=== PATIENT | male | born 1950 | race Caucasian/White ===

== ENCOUNTER 2020-11-29 22:07 | Inpatient (IN) | payer OTHER, MEDICAID ==
[~2020-11-29] VITALS: Ht 177.8 cm; Wt 116.3 kg
[~2020-11-29 22:07] MED LIST: ACET-929; DIAZ5TAB PO; GLIP5TAB12; GLYB5TAB8; HYDR-2595; LEVEMIR; LORA0.5T19; METH750T22; NAPR375T27; NOR10T PO; TEMA30CA; THYR60TA; TRAM50TA2; ZOLP5TAB PO
[2020-11-30 01:29] LABS: Basophils # (auto) 0 10 ^3/uL (0-0.2); Basophils % (auto) 0.4 % (0.0-2.0); Eosinophils # (auto) 0.1 10 ^3/uL (0-0.8); Eosinophils % (auto) 0.8 % (0.0-7.0); Hematocrit 41.6 % (41.0-53.0); Hemoglobin 14.1 g/dL (13.5-17.5); Lymphocytes # (auto) 1.4 10 ^3/uL (0.4-5.4); Lymphocytes % (auto) 15.7 % (10.0-50.0); Mean Corpuscular Hemoglobin 29.4 pg (28.0-32.0); Mean Corpuscular Hgb Conc. 33.8 g/dL (32.0-36.0); Mean Corpuscular Volume 86.8 fL (80.0-100.0); Monocytes # (auto) 0.6 10 ^3/uL (0-1.3); Monocytes % (auto) 7.2 % (0.0-12.0); Neutrophils # (auto) 6.7 10 ^3/uL (1.6-8.6); Neutrophils % (auto) 75.9 % (37.0-80.0); Red Cell Distribution Width 13.6 % (11.8-14.3); White Blood Cell 8.8 10^3/uL (4.4-10.8)
[2020-11-30 01:35] LABS: Albumin 2.5 g/dL (3.4-5.0); BUN/Creatinine Ratio 10.3; Calcium 8.4 mg/dL (8.5-10.1); Potassium 3.8 mmol/L (3.5-5.1)
[2020-11-30 01:40] LABS: Bilirubin, Total 0.2 mg/dL (0.2-1.0); Total Protein 6.7 g/dL (6.4-8.2)
[2020-11-30 02:48] LABS: Urine Bacteria NONE SEEN /hpf (None Seen); Urine Blood Negative /uL (Negative); Urine Hyaline Cast FEW /lpf (0 - 2); Urine Mucus FEW (None Seen); Urine Specific Gravity 1.018 (1.001-1.035); Urine WBC 4 /hpf (0 - 3)
[2020-11-30] MEDS ORDERED: ASPirin 325 MG TAB PO ONE (03:45)
[2020-11-30] MEDS ORDERED: ENOXAPARIN SOD 100 MG/1 ML SYRINGE SC ONE ×2 (03:45→06:45)
[2020-11-30] MEDS ORDERED: NITROGLYCERIN 0.4 MG SL TAB SL PRN (05:00)
[2020-11-30] MEDS ORDERED: MORPHINE SULFATE INJECTION 2 MG/ML SYRG IV PRN (05:00)
[2020-11-30] MEDS ORDERED: ACETAMINOPHEN 325 MG TAB PO PRN (05:00)
[2020-11-30] MEDS ORDERED: ONDANSETRON HCL 4 MG/2 ML VIAL IV PRN (05:00)
[2020-11-30] MEDS ORDERED: DEXTROSE (50%) 50ML SYRG IV PRN (05:00)
[2020-11-30] MEDS: InsuLIN REG 1unit/0.01ml Soln (100units/ml) SC SCH ×4 (05:44→23:51)
[2020-11-30] MEDS: ACCU-CHEK COMFORT CURVE STRIP VI SCH ×4 (05:45→23:51)
[2020-11-30] MEDS: ASPirin 81 mg TAB PO SCH (09:30)
[2020-11-30] MEDS: PANTOPRAZOLE 40 MG TAB PO SCH (09:30)
[2020-11-30] MEDS ORDERED: LORazepam 2MG/ML-1ML VIAL ONE (15:24)
[2020-11-30] MEDS ORDERED: LORazepam 2MG/ML-1ML VIAL IV ONE (15:30)
[2020-11-30 16:46] VITALS: BP 128/77
[2020-11-30] MEDS ORDERED: LORazepam 2MG/ML-1ML VIAL IV PRN ×2 (18:00→21:30)
[2020-11-30] MEDS: ATORVASTATIN 20 MG TAB PO SCH (20:56)
[2020-11-30 22:00] VITALS: BP 132/90
[2020-11-30 22:33] LABS: Folate (Folic Acid) > 24.00 ng/mL (5.38-24)
[2020-12-01 05:00] VITALS: BP 104/60
[2020-12-01] MEDS: InsuLIN REG 1unit/0.01ml Soln (100units/ml) SC SCH ×3 (05:31→18:00)
[2020-12-01] MEDS: ACCU-CHEK COMFORT CURVE STRIP VI SCH ×3 (05:32→18:00)
[2020-12-01 05:51] LABS: Basophils # (auto) 0.1 10 ^3/uL (0-0.2); Basophils % (auto) 0.8 % (0.0-2.0); Eosinophils # (auto) 0.1 10 ^3/uL (0-0.8); Eosinophils % (auto) 0.7 % (0.0-7.0); Hematocrit 44.1 % (41.0-53.0); Hemoglobin 15.1 g/dL (13.5-17.5); Lymphocytes # (auto) 1.3 10 ^3/uL (0.4-5.4); Lymphocytes % (auto) 17.9 % (10.0-50.0); Mean Corpuscular Hemoglobin 29.8 pg (28.0-32.0); Mean Corpuscular Hgb Conc. 34.2 g/dL (32.0-36.0); Monocytes # (auto) 0.5 10 ^3/uL (0-1.3); Monocytes % (auto) 7.6 % (0.0-12.0); Neutrophils # (auto) 5.3 10 ^3/uL (1.6-8.6); Nucleated Red Blood Cells % 0.1 %; Red Blood Cells 5.07 10^6/uL (4.5-5.90); Red Cell Distribution Width 13.8 % (11.8-14.3); White Blood Cell 7.2 10^3/uL (4.4-10.8)
[2020-12-01 06:27] LABS: Potassium 4.4 mmol/L (3.5-5.1)
[2020-12-01 06:39] LABS: Albumin 2.6 g/dL (3.4-5.0); BUN/Creatinine Ratio 7.4; Bilirubin, Total 0.4 mg/dL (0.2-1.0); Calcium 9.1 mg/dL (8.5-10.1)
[2020-12-01] MEDS ORDERED: ADENOSINE 99 MG in GIVE UN-DILUTED 0 ML IV STA (07:44)
[2020-12-01] MEDS: PANTOPRAZOLE 40 MG TAB PO SCH (11:11)
[2020-12-01] MEDS: ASPirin 81 mg TAB PO SCH (11:11)
[2020-12-01] MEDS ORDERED: HYDROcodone-ACET 10/325MG TAB PO PRN (11:30)
[2020-12-01] MEDS ORDERED: LORazepam 0.5 MG TAB PO PRN (11:30)
[2020-12-01] MEDS ORDERED: NICOTINE 21MG/24 HR TOPICAL PATCH TD ONE (11:30)
[2020-12-01] MEDS ORDERED: METHOCARBAMOL 500 MG TAB PO PRN (11:30)
[2020-12-01] MEDS ORDERED: traMADol HCL 50 MG TAB PO PRN (11:30)
[2020-12-01] MEDS ORDERED: ACETAMINOPHEN 325 MG TAB PO PRN (12:00)
[2020-12-01] MEDS: NAPROXEN 500 MG TAB PO SCH ×2 (12:17→21:54)
[2020-12-01 13:00] VITALS: BP 142/102
[2020-12-01] MEDS: glipiZIDE 5 MG TAB PO SCH (18:00)
[2020-12-01] MEDS ORDERED: CYANOCOBALAMIN (B-12) 1000 MCG/1 ML VIAL IM ONE (21:15)
[2020-12-01] MEDS: ATORVASTATIN 20 MG TAB PO SCH (21:53)
[2020-12-01] MEDS: TEMAZEPAM 15 MG CAP PO PRN (21:54)
[2020-12-01 22:01] VITALS: BP 124/78
[2020-12-01 22:04] LABS: Cholesterol 170 mg/dL (< 200)
[2020-12-01 22:07] LABS: HDL Cholesterol 30 mg/dL (40-59); LDL Cholesterol 127 mg/dL (< 100); Triglycerides 94 mg/dL (< 150)
[2020-12-02] MEDS: SODIUM CHLORIDE 0.9% 1,000 ML IV SCH ×3 (00:14→21:44)
[2020-12-02 05:00] VITALS: BP 123/72
[2020-12-02 05:38] LABS: Basophils # (auto) 0 10 ^3/uL (0-0.2); Basophils % (auto) 0.5 % (0.0-2.0); Eosinophils # (auto) 0.1 10 ^3/uL (0-0.8); Eosinophils % (auto) 1.4 % (0.0-7.0); Hematocrit 44.4 % (41.0-53.0); Hemoglobin 14.9 g/dL (13.5-17.5); Lymphocytes # (auto) 1.4 10 ^3/uL (0.4-5.4); Lymphocytes % (auto) 20.3 % (10.0-50.0); Mean Corpuscular Hemoglobin 29.7 pg (28.0-32.0); Mean Corpuscular Hgb Conc. 33.5 g/dL (32.0-36.0); Mean Corpuscular Volume 88.7 fL (80.0-100.0); Monocytes # (auto) 0.7 10 ^3/uL (0-1.3); Monocytes % (auto) 9.6 % (0.0-12.0); Neutrophils # (auto) 4.8 10 ^3/uL (1.6-8.6); Neutrophils % (auto) 68.2 % (37.0-80.0); Nucleated Red Blood Cells % 0.1 %; Red Cell Distribution Width 13.6 % (11.8-14.3); White Blood Cell 7.1 10^3/uL (4.4-10.8)
[2020-12-02] MEDS: ACCU-CHEK COMFORT CURVE STRIP VI SCH ×4 (05:52→17:41)
[2020-12-02] MEDS: InsuLIN REG 1unit/0.01ml Soln (100units/ml) SC SCH ×4 (05:52→17:42)
[2020-12-02 06:26] LABS: Sodium 137 mmol/L (136-145)
[2020-12-02 06:27] LABS: Anion Gap 7 (5-15); BUN/Creatinine Ratio 11.5; Blood Urea Nitrogen 13 mg/dL (7-18); Calcium 8.6 mg/dL (8.5-10.1); Carbon Dioxide 23 mmol/L (21-32); Chloride 107 mmol/L (98-107); GFR African American 83 mL/min; GFR Non-African American 68 mL/min; Glucose 135 mg/dL (74-106); Potassium 4.2 mmol/L (3.5-5.1)
[2020-12-02] MEDS: glipiZIDE 5 MG TAB PO SCH ×2 (07:00→17:40)
[2020-12-02 09:00] VITALS: BP 153/94
[2020-12-02] MEDS: THYROID 60 MG TAB PO SCH (10:06)
[2020-12-02] MEDS: NAPROXEN 500 MG TAB PO SCH ×2 (10:08→21:44)
[2020-12-02] MEDS: NICOTINE 21MG/24 HR TOPICAL PATCH TD SCH (10:09)
[2020-12-02] MEDS: PANTOPRAZOLE 40 MG TAB PO SCH (10:09)
[2020-12-02 13:00] VITALS: BP 150/93
[2020-12-02 16:56] VITALS: BP 99/64
[2020-12-02] MEDS: ATORVASTATIN 20 MG TAB PO SCH (21:43)
[2020-12-02 22:00] VITALS: BP 112/73
[2020-12-02] MEDS ORDERED: CYANOCOBALAMIN 500 MCG TAB PO SCH (22:00)
[2020-12-02] MEDS ORDERED: ASPirin 81 mg TAB PO SCH (22:00)
[2020-12-02] MEDS: TEMAZEPAM 15 MG CAP PO PRN (22:12)
[2020-12-03] MEDS: ACCU-CHEK COMFORT CURVE STRIP VI SCH ×3 (00:12→12:59)
[2020-12-03 05:00] VITALS: BP 113/73
[2020-12-03] MEDS: InsuLIN REG 1unit/0.01ml Soln (100units/ml) SC SCH ×3 (06:00→13:00)
[2020-12-03] MEDS: glipiZIDE 5 MG TAB PO SCH (06:54)
[2020-12-03 08:16] LABS: Basophils # (auto) 0.2 10 ^3/uL (0-0.2); Basophils % (auto) 2.5 % (0.0-2.0); Eosinophils # (auto) 0.2 10 ^3/uL (0-0.8); Eosinophils % (auto) 1.7 % (0.0-7.0); Hematocrit 45.6 % (41.0-53.0); Hemoglobin 14.9 g/dL (13.5-17.5); Lymphocytes # (auto) 2.2 10 ^3/uL (0.4-5.4); Lymphocytes % (auto) 22.2 % (10.0-50.0); Mean Corpuscular Hemoglobin 28.4 pg (28.0-32.0); Mean Corpuscular Hgb Conc. 32.6 g/dL (32.0-36.0); Mean Corpuscular Volume 87.1 fL (80.0-100.0); Monocytes # (auto) 0.9 10 ^3/uL (0-1.3); Monocytes % (auto) 8.9 % (0.0-12.0); Neutrophils # (auto) 6.3 10 ^3/uL (1.6-8.6); Neutrophils % (auto) 64.7 % (37.0-80.0); Nucleated Red Blood Cells % 0.3 %; Red Blood Cells 5.23 10^6/uL (4.5-5.90); Red Cell Distribution Width 13.8 % (11.8-14.3); White Blood Cell 9.8 10^3/uL (4.4-10.8)
[2020-12-03 08:25] LABS: Albumin 2.4 g/dL (3.4-5.0); Calcium 8.6 mg/dL (8.5-10.1); Potassium 5.5 mmol/L (3.5-5.1)
[2020-12-03 08:32] LABS: Bilirubin, Total 0.5 mg/dL (0.2-1.0); Total Protein 6.8 g/dL (6.4-8.2)
[2020-12-03 09:00] VITALS: BP 115/70
[2020-12-03] MEDS: THYROID 60 MG TAB PO SCH (12:55)
[2020-12-03] MEDS: NAPROXEN 500 MG TAB PO SCH (12:56)
[2020-12-03] MEDS: PANTOPRAZOLE 40 MG TAB PO SCH (12:59)
[2020-12-03] MEDS: NICOTINE 21MG/24 HR TOPICAL PATCH TD SCH (12:59)
[2020-12-03 13:00] VITALS: BP 139/102
[2020-12-03] MEDS: SODIUM CHLORIDE 0.9% 1,000 ML IV SCH (13:00)
== END 2020-12-03 16:50 | disposition home or self-care (01) | DRG 64 ==
LOC: EDBD 22:07 → ER 22:17 → TELE 11-30 04:57 → TELE-WESTW 11-30 14:48
PROVIDERS: ADMIT Nurse Practitioner; ATTEND Internal Medicine
DX: I63.9 Cerebral infarction, unspecified (principal); I21.4 Non-ST elevation (NSTEMI) myocardial infarction; N17.0 Acute kidney failure with tubular necrosis; S02.19XA Other fracture of base of skull, initial encounter for closed fracture; G93.49 Other encephalopathy; E44.0 Moderate protein-calorie malnutrition; E87.1 Hypo-osmolality and hyponatremia; Z68.36 Body mass index [BMI] 36.0-36.9, adult; E11.22 Type 2 diabetes mellitus with diabetic chronic kidney disease; E11.42 Type 2 diabetes mellitus with diabetic polyneuropathy; E66.9 Obesity, unspecified; E78.5 Hyperlipidemia, unspecified; E87.5 Hyperkalemia; I12.9 Hypertensive chronic kidney disease with stage 1 through stage 4 chronic kidney disease, or unspecified chronic kidney disease; Z20.822 Contact with and (suspected) exposure to COVID-19; N18.9 Chronic kidney disease, unspecified; I25.10 Atherosclerotic heart disease of native coronary artery without angina pectoris; W01.0XXA Fall on same level from slipping, tripping and stumbling without subsequent striking against object, initial encounter; Y93.89 Activity, other specified; Y92.89 Other specified places as the place of occurrence of the external cause; Y99.8 Other external cause status; I25.2 Old myocardial infarction; Z79.82 Long term (current) use of aspirin; Z79.899 Other long term (current) drug therapy; Z86.73 Personal history of transient ischemic attack (TIA), and cerebral infarction without residual deficits; Z91.19 Patient's noncompliance with other medical treatment and regimen; Z95.1 Presence of aortocoronary bypass graft
CPT/HCPCS: 36415; 70450; 70551; 71045; 80048; 80053; 80061; 81001; 82607; 82746; 82962; 83036; 83735; 83880; 84443; 84484; 85025; 87426; 93005; 93306; 93886; 95819; 96372; 97110; 97116; 97163; 97530; G0378; J0153; J1815